=== PATIENT | male | born 1950 ===

== ENCOUNTER → 2018-06-26 | Outpatient (CLI) | payer OTHER ==
[~2018-06-26] MED LIST: COZAAR25 MG PO; DICLOFENAC POTA50 MG PO; NABUMETONE750 MG PO
== END | disposition home or self-care (01) ==
LOC: SONOGRAMA 10:11 → MAMO-SONO 10:15
DX: R10.2 Pelvic and perineal pain (principal); R97.21 Rising PSA following treatment for malignant neoplasm of prostate

== ENCOUNTER 2018-11-12 09:24 | Outpatient (CLI) | payer OTHER ==
[~2018-11-12] VITALS: Ht 172.7 cm; Wt 86.2 kg
== END 2018-11-12 09:40 | disposition home or self-care (01) ==
LOC: OFIC 805 09:24
DX: R09.81 Nasal congestion (principal); J30.89 Other allergic rhinitis

== ENCOUNTER 2018-12-10 08:26 | Outpatient (CLI) | payer OTHER ==
[~2018-12-10] VITALS: Ht 152.4 cm; Wt 86.2 kg
== END 2018-12-10 08:40 | disposition home or self-care (01) ==
LOC: OFIC 805 08:26
DX: J30.89 Other allergic rhinitis (principal); R09.81 Nasal congestion; J34.3 Hypertrophy of nasal turbinates

== ENCOUNTER 2019-06-16 10:09 | Outpatient (CLI) | payer OTHER | END 2019-06-16 10:12 | disposition home or self-care (01) | LOC: SONOGRAMA 10:09 | DX: N18.4 Chronic kidney disease, stage 4 (severe) (principal); I10 Essential (primary) hypertension ==

== ENCOUNTER 2019-07-06 07:11 | Outpatient (CLI) | payer OTHER | END 2019-07-06 08:39 | disposition home or self-care (01) | LOC: MRI 07:11 | DX: M25.561 Pain in right knee (principal); M25.562 Pain in left knee | CPT/HCPCS: 73718 ==

== ENCOUNTER 2019-07-13 12:36 | Outpatient (CLI) | payer OTHER ==
[~2019-07-13] VITALS: Ht 152.4 cm; Wt 81.6 kg
== END 2019-07-13 15:24 | disposition home or self-care (01) ==
LOC: OFIC 805 12:36
DX: J34.3 Hypertrophy of nasal turbinates (principal); J30.89 Other allergic rhinitis; R09.81 Nasal congestion; R42 Dizziness and giddiness

== ENCOUNTER 2019-11-01 09:00 | Outpatient (CLI) | payer OTHER ==
[~2019-11-01] VITALS: Ht 152.4 cm; Wt 89.8 kg
== END 2019-11-01 15:47 | disposition home or self-care (01) ==
LOC: OFIC 805 09:00
PROVIDERS: ATTEND Otolaryngology
DX: H90.3 Sensorineural hearing loss, bilateral (principal); J34.3 Hypertrophy of nasal turbinates; J30.89 Other allergic rhinitis; R09.81 Nasal congestion; R42 Dizziness and giddiness

== ENCOUNTER 2020-02-11 07:58 | Outpatient (CLI) | payer OTHER | END 2020-02-11 08:00 | disposition home or self-care (01) | LOC: SONOGRAMA 07:58 → MAMO-SONO 08:15 | PROVIDERS: ATTEND Internal Medicine Gastroenterology | DX: R74.0 Nonspecific elevation of levels of transaminase and lactic acid dehydrogenase [LDH] (principal); E78.00 Pure hypercholesterolemia, unspecified ==

== ENCOUNTER 2024-06-04 11:24 | Outpatient (CLI) | payer OTHER ==
[~2024-06-04 11:24] MED LIST changes: +DICLOFENAC SODI50 MG PO; +HYMOVIS24 MG/3 ML IU
== END 2024-06-04 11:28 | disposition home or self-care (01) ==
LOC: RAD 11:24
PROVIDERS: ATTEND Physical Medicine & Rehabilitation
DX: M25.562 Pain in left knee (principal); M17.9 Osteoarthritis of knee, unspecified

== ENCOUNTER 2024-11-12 12:12 | Outpatient (CLI) | payer OTHER ==
[~2024-11-12 12:12] MED LIST changes: +DEPO-MEDRO40 MG/1 ML IJ
== END 2024-11-12 12:19 | disposition home or self-care (01) ==
LOC: RAD 12:12
PROVIDERS: ATTEND Physical Medicine & Rehabilitation
DX: M25.541 Pain in joints of right hand (principal); M25.542 Pain in joints of left hand; M19.041 Primary osteoarthritis, right hand; M17.11 Unilateral primary osteoarthritis, right knee